=== PATIENT | male | born 1980 | race Hispanic/Latino ===

== ENCOUNTER 2024-10-31 08:28 | Emergency (ER) | payer BC ==
[~2024-10-31] VITALS: Ht 167.6 cm; Wt 98.4 kg
[~2024-10-31 08:28] MED LIST: ASPI-1012 PO; INSLAN SQ; METF-444 PO
--- NOTE | 2024-10-31 08:32 | NUR ---
COVID, FLU AND STREP SWABS COLLECTED AND SENT
[2024-10-31 08:43] VITALS: BP 157/89; PULSE 88; RESP 16; TEMP 98.4; O2SAT 98
--- NOTE | 2024-10-31 09:02 | ERN ---
ED Note History of Present Illness Stated Complaint: COUGH Chief Complaint: Cough Time Seen by MD: 08:31 Dictation: This 44-year-old male with a history of type 2 diabetes and blood pressure problems presents in the emergency department with two days of cough with sore throat. There was a fever on day one. There was no nasal congestion or ear pain. The patient does not have chest pain or edema. There were no GI or symptoms and no rash. The cough is keeping him up at night but he is not short of breath. He is not treating himself with a anything at home. He was exposed to cold symptoms which his currently has and his stepson had the flu a week and a half ago. He was supposed to follow up with his PCP today however the office is closed. He is supposed to be monitoring his blood pressure with a upper arm cuff pending his next doctor visit. The patient lives at home with family. He does not smoke use recreational drugs and rarely drinks Allergies: Coded Allergies: No Known Drug Allergies (Verified Allergy, Unknown, 08/25/20) Home Meds Active Scripts Aspirin (ASPIRIN) 325 Mg Tablet, 325 MG PO DAILY for 30 Days, #30 TAB Prov:MIO BARTHOLOMEW MD 09/07/20 Metformin HCl (Metformin HCl) 500 Mg Tablet, 500 MG PO TIDMEALS for 30 Days, #30 TAB Prov:MIO BARTHOLOMEW MD 09/07/20 Insulin Glargine,Hum.rec.anlog (Lantus) 100 Units/Ml Inj, 30 UNITS SQ HS for 30 Days, #3 VIAL 3 Refills Prov:MIO BARTHOLOMEW MD 09/07/20 Past Medical History Past Medical History: Diabetes-Type II, Hypertension Surgical History: None Social History: Lives with family RN Note Reviewed/Agreed w/PFSH: Yes Review of System Dictation All pertinent systems reviewed, negative except as documented in the HPI The ROS is obtained from patient GENERAL/CONSTITUTIONAL: Negative except as documented in HPI. ENT: Negative except as documented in HPI. CARDIOVASCULAR: Negative except as documented in HPI. RESPIRATORY: Negative except as documented in HPI. GASTROINTESTINAL: Negative except as documented in HPI. GENITOURINARY: Negative except as documented in HPI. MUSCULOSKELETAL: Negative except as documented in HPI. SKIN: Negative except as documented in HPI. NEUROLOGIC: Negative except as documented in HPI. Initial Vital Sign VS Vital Signs Date Time Temp Pulse Resp B/P (MAP) Pulse Ox O2 Delivery O2 Flow Rate FiO2 10/31/24 08:30 97.3 87 18 151/104 98 Room Air 0 10/31/24 08:43 21 Physical Exam Dictation VITAL SIGNS: note is made of triage vital signs CONSTITUTIONAL: This is a comfortable patient who is awake, alert, and appropriately interactive. HEAD: Normocephalic, Atraumatic. EYES: Periorbital areas with no swelling, redness, or edema. Lids and lashes are normal. Conjunctival injection is absent. Sclera anicteric. Pupils equal, round, reactive to light. ENT: No nasal discharge noted. Posterior pharynx is without exudate, redness, swelling, masses, or evidence of obstruction. Uvula midline. Mucous membranes moist. NECK: Trachea midline, no masses palpated, and no cervical lymphadenopathy. No swelling. Supple, full range of motion without nuchal rigidity. No vertebral point tenderness. No meningismus. CHEST/AXILLA: Normal chest wall appearance and motion. No tenderness. No crepitus. CV: Normal rate, regular rhythm. No murmur. No edema. RESPIRATORY:Respiratory rate is normal. Bilateral equal breath sounds with good airflow. Normal breath sounds are noted. No rales, rhonchi or wheezes noted. No increased work of breathing, no retractions. ABDOMEN: Inspection normal. No distention is appreciated. Bowel sounds are normal. No mass or organomegaly is appreciated. There is no tenderness. No rebound. No rigidity. No voluntary or involuntary guarding. BACK: Inspection is normal. No midline tenderness is appreciated. The patient appears comfortable when moving. : No CVA tenderness or bladder tenderness. SKIN: Warm, dry, with normal turgor. Capillary refill less than 3 seconds. Normal color.No rash. No cellulitis or abscess. No evidence of acute injury. MS/Extremity: There is no calf tenderness. Baseline range of motion is noted in all 4 extremities. There are no deformities. NEURO: Awake and alert, lucid. Facies symmetric and speech is clear. Motor strength 5/5 in all extremities. Sensory grossly intact. PSYCH: Patient is appropriately attentive and cooperative without evidence of hallucination. Results (Laboratory/Radiology) Laboratory/Radiology Laboratory Tests Test 10/31/24 08:33 Influenza Type A Antigen Negative For Type A Influenza Type B Antigen Negative For Type B SARS-CoV-2, RNA, NAAT NEGATIVE SARS CoV-2 Group A Streptococcus Rapid negative (NEGATIVE) Labs Reviewed?: Yes ED Course ED Course Orders Procedure Category Date Status Time Covid Rna Naat LAB 10/31/24 Complete 08:32 Influenza Type A & B, LAB 10/31/24 Complete Rapid 08:32 Rapid (Group A Strep) LAB 10/31/24 Complete 08:32 Vital Signs Date Time Temp Pulse Resp B/P (MAP) Pulse Ox O2 Delivery O2 Flow Rate FiO2 10/31/24 08:43 98.4 88 16 157/89 98 Room Air* 0 21 10/31/24 08:30 97.3 87 18 151/104 98 Room Air 0 Medical Decision Making MDM INITIAL IMPRESSION Initial history and physical concerning for viral bronchitis, viral pharyngitis, very well-appearing gentleman in no acute distress Contributing medical problems: Diabetes and hypertension I have reviewed the triage nursing notes and vital signs. The patient is afebrile with acceptable oxygen saturation, heart rate and blood pressure. Initial plan: Swabs for flu COVID and strep DATA REVIEW I have reviewed additional NN, repeat VS, and monitoring where indicated. Heart rate, blood pressure, and O2 saturation are acceptable. [place] diagnostic results: Swabs are negative for influenza, strep and COVID Lungs are completely clear and the patient is not coughing in the ED. imaging is not indicated Other independent historian: none Review of external data: None. ED COURSE Interventions: None Reassessment: Patient has been stable in the ED texting and talking on the phone. Blood pressure has improved DISPOSITION Final diagnostic impression: URI I discussed my findings, clinical impression and treatment recommendations with the patient. I have reviewed the social factors contributing to the patient's presentation and disposition planning. My final plan for disposition was made based upon clinical findings, response to treatment and discussion with the patient regarding management options. Hospitalization is not indicated due to low risk of short term progression, complication, morbidity or mortality related to the current diagnosis At the time of discharge, the vital signs are within acceptable limits. The discharge treatment plan includes Tessalon Perles and general rec ommendations I have reviewed the expected course of his viral upper respiratory infection Incidental findings discussed: none Questions were invited and answered in layman's terms. I have emphasized my follow-up recommendations and reviewed ED return pre cautions. I have answered any questions in layman's terms. The patient understands that they will have to arrange for out-patient follow-up for recheck of today's condition. The patient is stable and appropriate for discharge from the ED. This dictation was prepared using VFA voice recognition software. Occasional voice recognition errors may occur. When identified, these errors have been corrected. While every attempt is made to correct errors during dictation, errors may still exist. DX & DISP Disposition: Discharge Decision to Admit Date: Oct 31, 2024 Decision to Admit Time: 09:57 Departure Impression: Primary Impression: Upper respiratory infection Condition: Stable Scripts Benzonatate (Tessalon Perles) 100 Mg Cap 1 CAP PO TID for cough for 10 Days, #30 CAP 0 Refills Prov: PRECIOUS BALDWIN MD 10/31/24 Additional Instructions: Plenty of fluids while you are sick. Use the Tessalon Perles up to 3 times a day if needed for cough. It is okay to add an [id number] cough medication for people with hypertension but verify that ingredients do not overlap with the anything else you are taking. Continue monitoring your blood pressure as recommended by your primary care physician and keep follow up with your primary care physician next week. For immediate assistance contact 911 Referrals: SELF,REFERRAL (PCP) Time of Disposition: 09:59 PRECIOUS BALDWIN MD Oct 31, 2024 09:02
[2024-10-31 09:13] LABS: RAPID GROUP A STREP negative (NEGATIVE)
[2024-10-31 09:26] LABS: INFLUENZA TYPE A Negative For Type A (NEGATIVE); INFLUENZA TYPE B Negative For Type B (NEGATIVE)
[2024-10-31 09:43] LABS: SARS-CoV-2, RNA, NAAT NEGATIVE SARS CoV-2 (NEGATIVE)
[2024-10-31] MEDS ORDERED: BENZ-39 PO (09:58)
== END 2024-10-31 10:06 | disposition home or self-care (01) ==
LOC: EDH 08:28
DX: J06.9 Acute upper respiratory infection, unspecified (principal); E11.9 Type 2 diabetes mellitus without complications; I10 Essential (primary) hypertension; Z79.82 Long term (current) use of aspirin; Z20.822 Contact with and (suspected) exposure to COVID-19
CPT/HCPCS: 87635; 87804; 87880; 99283